=== PATIENT | female | born 1975 | race Caucasian/White ===

== ENCOUNTER 2021-12-19 14:43 | Emergency (ER) | payer OTHER ==
[~2021-12-19] VITALS: Ht 157.5 cm; Wt 60.8 kg
== END 2021-12-19 20:19 | disposition home or self-care (01) ==
LOC: ER 14:43 → EDBD 14:58 → ER 14:58
DX: R10.13 Epigastric pain (principal)

== ENCOUNTER 2022-01-03 16:21 | Outpatient (CLI) | payer OTHER | END 2022-01-03 16:26 | disposition home or self-care (01) | LOC: LAB 16:21 | PROVIDERS: ATTEND Colon & Rectal Surgery | DX: Z20.822 Contact with and (suspected) exposure to COVID-19 (principal) ==